=== PATIENT | female | born 1995 | race Caucasian/White ===

== ENCOUNTER → 2017-04-25 | Outpatient (REF) | payer BC | LOC: M LAB REF 12:15 | PROVIDERS: ATTEND Physician Assistant | DX: J02.9 Acute pharyngitis, unspecified (principal) ==

== ENCOUNTER → 2017-04-26 | Outpatient (REF) | payer BC | LOC: M LABDRWAD 19:58 → M LAB REF 19:58 | PROVIDERS: ATTEND Physician Assistant | DX: J20.9 Acute bronchitis, unspecified (principal) ==

== ENCOUNTER → 2021-05-02 | Outpatient (CLI) | payer BC ==
[2021-05-02 15:40] LABS: HEMATOCRIT 37.9 % (36.0-47.0)
[2021-05-02 15:42] LABS: BASO % 0.3 % (0.0-1.0); EOS # 0.1 10^3/uL (0.0-0.5); EOS % 0.9 % (0.0-3.0); HEMATOCRIT 38.1 % (36.0-47.0); HEMOGLOBIN 13.5 g/dl (12.0-15.5); LYMPH # 1.6 10^3/uL (1.5-5.0); LYMPH % 25.7 % (24.0-44.0); MEAN CORPUSCULAR HEMOGLOBIN 31.9 pg (27.0-33.0); MEAN CORPUSCULAR HGB CONC 35.4 g/dl (32.0-36.5); MEAN CORPUSCULAR VOLUME 90.1 fl (80.0-96.0); MONO # 0.4 10^3/uL (0.0-0.8); MONO % 6.8 % (2.0-8.0); NEUTROPHILS # 4.2 10^3/uL (1.5-8.5); PLATELET COUNT, AUTOMATED 260 10^3/uL (150-450); RED BLOOD COUNT 4.23 10^6/uL (4.00-5.40); WHITE BLOOD COUNT 6.4 10^3/uL (4.0-10.0)
[2021-05-02 16:13] LABS: C REACTIVE PROTEIN QUANTITATIV < 0.30 MG/DL (0.00-0.30); FREE T3 2.3 PG/ML (2.2-4.0); IRON (FE) 131 UG/DL (50-170); PERCENT SATURATION 42.8 % (13.2-45.0); THYROID STIMULATING HORMONE 0.529 uIU/ML (0.358-3.740); TOTAL IRON BINDING CAPACITY 306 UG/DL (250-450)
[2021-05-02 16:15] LABS: THYROID PEROXIDASE ANTIBODY < 28.0 U/ML (<60.0); TOTAL 25(OH) VITAMIN D 30.9 NG/ML (30.0-100.0)
== END ==
LOC: M LAB 13:41
PROVIDERS: ATTEND Nurse Practitioner Pediatrics
DX: F33.2 Major depressive disorder, recurrent severe without psychotic features (principal)